=== PATIENT | male | born 1995 | race African-American/Black ===

== ENCOUNTER 2019-11-30 10:43 | Emergency (ER) | payer SELFPAY ==
[2019-11-30] MEDS ORDERED: traMADol HCl 50 MG TAB ONE (10:58)
[2019-11-30] MEDS ORDERED: Lidocaine 1% (PF) 30 ML VIAL ONE (10:58)
== END 2019-11-30 11:54 | disposition home or self-care (01) ==
LOC: NAV ERS 10:43
DX: S97.122A Crushing injury of left lesser toe(s), initial encounter (principal); W31.9XXA Contact with unspecified machinery, initial encounter
CPT/HCPCS: 11750; J2001